=== PATIENT | male | born 1995 | race Hispanic/Latino ===

== ENCOUNTER 2018-08-02 17:11 | Emergency (ER) | payer OTHER ==
[2018-08-02] MEDS: LIDOCAINE 1% MDV 20ML VIAL SC (19:00)
== END 2018-08-02 20:37 | disposition home or self-care (01) ==
LOC: M ED 17:11
DX: S61.411A Laceration without foreign body of right hand, initial encounter (principal); W26.8XXA Contact with other sharp object(s), not elsewhere classified, initial encounter; Y92.098 Other place in other non-institutional residence as the place of occurrence of the external cause
CPT/HCPCS: 12001